=== PATIENT | male | born 1985 | race Caucasian/White ===

== ENCOUNTER 2024-08-20 08:50 | Day surgery (SDC) | payer OTHER, MEDICAID, SELFPAY ==
[2024-08-19 12:55] VITALS: BMI 24.9
--- NOTE | 2024-08-19 13:07 | SUR.PREOP ---
eRll done over the phone, pt was unable to come in for registration. Instructed to keep NPO after MN and be here tomorrow at 0900.
[2024-08-20] VITALS (11 sets, daily range): BP systolic 101–120; BP diastolic 59–84; PULSE 72–98; RESP 12–20; TEMP 36.4–36.9; O2SAT 96–99; BMI 25.4
--- NOTE | 2024-08-20 12:07 | SUR.PHASEII ---
1207 report given to Thu BRYANT
--- NOTE | 2024-08-20 12:35 | SUR.PHASEI ---
1235 Patient arrived to recovery resting comfortably in [facility], on oxygen 7L via oxy mask with a nasopharyngeal airway in place, breathing unlabored, vital signs stable, lung sounds clear upon auscultation, bilateral radial pulses present when palpated, report received Bin BRYANT and Emely LAW/Dr. Nunez
--- NOTE | 2024-08-20 12:38 | PD.SUROPNT ---
Date of Procedure 08/20/24 Pre Op Diagnosis Chronic tonsillitis with recurrent strep throat Post Op Diagnosis Chronic tonsillitis with recurrent strep throat Procedure Adult tonsillectomy Findings Grade 1 cryptic tonsils Procedure Description Indications this 39-year-old male with recurrent and chronic strep throat. Been treated up to 6 times a year for over the infection. He wished to have the tonsils removed. Risk of bleeding infection and potential need for further surgery were discussed. Patient was transferred to the operative suite where he was anesthetized intubated and sterilely draped and timeout performed. The oral mouthgag was carefully inserted and suspended on the Peng stand. Both anterior tonsillar pillars were injected with 1% lidocaine with 1 100,000 dilution epinephrine. Less than 5 cc total were used. The left tonsil was then grasped with a tonsil tenaculum and removed with the Coblator at a setting of 7 and 5. A similar procedure was then performed on the right side. There was persistent oozing on the right side that required control with suction cautery. No further bleeding was noted. The mouthgag was removed and the patient was awakened and taken the recovery room in stable condition Anesthesia GETA Pathology / specimen Other (Left and right tonsil) Estimated Blood Loss 5 Surgeon Mehdi Ayala DO Surgical Staff Operation Date: 08/20/24 11:15 Case Staff Anesthesiologist: Smooth Nunez
--- NOTE | 2024-08-20 12:46 | SUR.PHASEII ---
1426 Patient meets discharge criteria from recovery, awake and alert, breathing unlabored, vital signs stable, denies pain-patient given pain pill prior to discharge, patient ate a jello and drinking juice, tolerating well, denies nausea, patient assisted with dressing into his clothing by staff, discharge instructions given to patient and patients father, father signed discharge instructions. Patient given all his belongings prior to discharge, transported via wheelchair and left in a private vehicle.
--- NOTE | 2024-08-20 13:05 | SUR.PHASEII ---
pt preparing for discharge. vss. tolerating po jello and ice. report from turner.
--- NOTE | 2024-08-20 13:07 | SUR.PHASEII ---
1307 Report given to Thu BRYANT
[2024-08-20] MEDS: HYDROcodone/APAP 5/325 TABLET 1 TAB PO (13:18)
--- NOTE | 2024-08-20 13:40 | SUR.PHASEII ---
1345 Report received from Thu BRYANT
--- NOTE | 2024-08-20 13:40 | SUR.PHASEII ---
report to nurse turner. pt ready and awaiting pharmacy picking tech. dad on way. tolerating juice and jello. nausea and pain controlled. vss. breathing even and unlabored.
== END 2024-08-20 14:26 | disposition home or self-care (01) ==
PROVIDERS: PCP Nurse Practitioner Family; Referring Provider Otolaryngology; Visit Provider Otolaryngology
PROC: (CPT 42826; principal; 2024-08-20 11:00)
DX: J02.0 Streptococcal pharyngitis (principal); J35.01 Chronic tonsillitis
CPT/HCPCS: 42826; A4217; J0330; J1100; J2405; J2704; J3010; J3490; A9270; J1805